=== PATIENT | male | born 1990 | race Caucasian/White ===

== ENCOUNTER 2018-12-26 06:55 | Emergency (ER) | payer MEDICAID ==
[~2018-12-26] VITALS: Ht 182.9 cm; Wt 99.8 kg
[2018-12-26] MEDS ORDERED: ALBU90OI INH (07:21)
== END 2018-12-26 08:38 | disposition home or self-care (01) ==
LOC: ER 06:55
DX: J98.01 Acute bronchospasm (principal); Z79.899 Other long term (current) drug therapy
CPT/HCPCS: 94640; 99284-25